=== PATIENT | female | born 1945 | race Caucasian/White ===

== ENCOUNTER 2023-10-04 00:40 | Emergency (ER) | payer MEDICARE ==
[~2023-10-04] VITALS: Ht 167.6 cm; Wt 65.8 kg
[2023-10-04] MEDS: ONDANSETRON 4MG INJ IVP ONE (01:02)
[2023-10-04] MEDS: FAMOTIDINE 20MG VIAL IV ONE (01:02)
[2023-10-04] MEDS: 0.9%NACL 1000ML 1,000 ML IV ONE (01:02)
[2023-10-04] MEDS: KETOROLAC 30MG VIAL (30MG/ML) IVP ONE (01:03)
[2023-10-04 01:11] LABS: BASOPHILS # (AUTO) 0.09 K/uL (0.00-0.20); BASOPHILS % (AUTO) 0.4 % (0.0-5.0); EOSINOPHILS # (AUTO) 0.03 K/uL (0.00-0.70); EOSINOPHILS % (AUTO) 0.1 % (0.0-8.0); HEMATOCRIT 48.6 % (36-48); IMMATURE GRANULOCYTE ABSOLUTE 0.21 K/uL (0-1); LYMPHOCYTES # (AUTO) 1.3 K/uL (1.0-4.8); LYMPHOCYTES % (AUTO) 5.1 % (21.0-51.0); MEAN CORPUSCULAR HGB CONC 33.3 g/dL (32.0-36.0); MEAN CORPUSCULAR VOLUME 92.9 fL (79-99); MONOCYTES # (AUTO) 1.3 K/uL (0.1-1.0); NEUTROPHILS # (AUTO) 22.5 K/uL (1.8-7.7); NEUTROPHILS % (AUTO) 88.6 % (40.0-77.0); PLATELET COUNT (AUTO) 251 K/uL (130-400); RED BLOOD CELL COUNT(AUTO) 5.23 MIL/uL (4.00-5.50); WHITE BLOOD COUNT (AUTO) 25.4 K/uL (4.8-10.8)
[2023-10-04] MEDS ORDERED: IOHEXOL-350 75 ML VIAL IV ONE (01:18)
[2023-10-04 01:24] LABS: RAPID GROUP A STREP negative (NEGATIVE)
[2023-10-04 01:29] LABS: SARS-CoV-2, RNA, NAAT NEGATIVE SARS CoV-2 (NEGATIVE)
[2023-10-04 01:37] LABS: INFLUENZA TYPE A Negative For Type A (NEGATIVE); INFLUENZA TYPE B Negative For Type B (NEGATIVE)
[2023-10-04 01:40] LABS: ALBUMIN 3.7 g/dL (3.5-5.0); BILIRUBIN,TOTAL 0.6 mg/dL (0.2-1.0); CREATININE 0.9 mg/dL (0.5-1.5); POTASSIUM 3.4 mmol/L (3.5-5.1); TOTAL PROTEIN, SERUM 7.2 g/dL (6.0-8.3)
[2023-10-04 02:47] LABS: WBC MORPHOLOGY CONSISTENT W/DIFF
[2023-10-04] MEDS ORDERED: FAMO-136 PO (04:43)
[2023-10-04] MEDS ORDERED: LACT1CAP81 PO (04:43)
[2023-10-04] MEDS ORDERED: ONDA4TAB10 SL (04:43)
[2023-10-04 04:46] VITALS: BP 140/70; PULSE 80; RESP 18; O2SAT 99
== END 2023-10-04 05:01 | disposition home or self-care (01) ==
LOC: EDH 00:40
DX: K52.9 Noninfective gastroenteritis and colitis, unspecified (principal); Z88.0 Allergy status to penicillin; Z88.2 Allergy status to sulfonamides; Z20.822 Contact with and (suspected) exposure to COVID-19
CPT/HCPCS: 99285; 74177; 96374; 71045; 96361; 96375; 87635; 84484; 80053; 83690; 85025; 87880; 87804 ×2; 36415; J3490; J7030; J2405; J1885; Q9967